=== PATIENT | male | born 1980 | race Caucasian/White ===

== ENCOUNTER → 2016-12-22 | Outpatient (CLI) | payer BC ==
[~2016-12-22] MED LIST: AZIT250T81 PO
[2016-12-22 13:49] VITALS: BP 120/79
--- NOTE | 2016-12-22 13:49 | Urgent Care T Sheet Gen (E) ---
Intake General Temperature (Fahrenheit): 98.0 Pulse: 63 Blood Pressure Systolic: 120 Blood Pressure Diastolic: 79 Respirations: 18 SPO2: 99 Description of Symptoms Patient presents with probable sinus infection. Patient has been sick with nasal congestion, PND and cough for a week. Low grade fevers started a few days ago. Been taking Mucinex and NyQuil. No history of seasonal allergies. States he really only gets a sinus infection 1-2 times a year, otherwise is very healthy. Respiratory Constitutional Symptoms: Fever Malaise EENTM: Nose Congestion Throat pain Respiratory: Cough Cardiovascular: No symptoms reported Gastrointestinal/Abdominal: No symptoms reported All Other Systems Reviewed Remaining Systems: All other systems reviewed with negative findings Physical Exam Physical Exam General Appearance: WD/WN No apparent distress Eyes, Ears, Nose, Throat Ex: TMs normal (air fluid bubbles) Pharyngeal erythema (cobblestone appearance; thick PND) Other (red, swollen nasal turbinates with purulent drainage. tender over frontal sinuses) Neck Exam: SuppleNo Lymphadenopathy Respiratory Exam: Lungs clear Normal breath sounds Cardiovascular Exam: Regular rate, rhythm Departure Urgent Care Impression Impression: Primary Impression: Sinusitis Qualified Code: J01.10 - Acute frontal sinusitis, unspecified Departure Disposition: HOME OR SELF-CARE Condition: Stable Referrals: JUJU KIRBY MD (PCP) Additional Instructions: I have started the patient on Zpak for treatment Patient may continue with Mucinex as directed. May also use a Netti pot to flush out his sinuses. Rest. Fluids Return as needed Patient understands DC instructions. All questions were answered. Scripts Azithromycin (Zithromax Z-Abilio)6 Tab/Pkt [id number] Mg PO SEE INSTRUCTIONS #6 TAB Ref 0 Day One: Take 2 tablets by mouth Days Two-Five: Take 1 tablet by mouth Prov:HAYLIE HARDING 12/22/16 End of report . HAYLIE HARDING Dec 22, 2016 13:48
== END ==
LOC: MHUC 13:13
PROVIDERS: ATTEND Physician Assistant
DX: J01.10 Acute frontal sinusitis, unspecified (principal)
CPT/HCPCS: 99213